=== PATIENT | female | born 1955 | race Caucasian/White ===

== ENCOUNTER → 2016-09-05 | Day surgery (SDC) | payer OTHER ==
[~2016-09-05] VITALS: Ht 162.6 cm; Wt 56.1 kg
[~2016-09-05] MED LIST: ACET500C PO; ACETAMINOPHEN 1000 MG/100 ML VIAL IV ONE; ACETAMINOPHEN 1000 MG/100 ML VIAL IV SCH; ATOR40TA16 PO; BUPIVACAINE LIPOSOME PF 1.3% 20 ML VIAL INFIL ONE; BUPIVACAINE/EPINEPHRINE 0.5% PF 10 ML VIAL ONE; BUPIVACAINE/EPINEPHRINE 0.5% PF 30 ML VIAL ONE; CHOL1TAB42 PO; DEXAMETHASONE SOD PHOS 4 MG/ML VIAL ONE; DIAZ5TAB PO; DIPH2.5T14 PO; FAMOTIDINE 20 MG/2 ML VIAL ONE; INSULIN HUMAN REGULAR 1,000 UNITS/10 ML VIAL SQ PRN; KETAMINE HCL 500 MG/5 ML VIAL ONE; LACTATED RINGER'S 1000 ML INJ 1,000 ML IV ONE; LACTATED RINGER'S 1000 ML IV SCH; LEVO88TA2 PO; LIDOCAINE 1%/EPINEPHrine 1:100,000 SOLN 20 ML VIAL ONE; METOPROLOL TARTRATE 25 MG TAB PO PRN; MIDAZOLAM HCL 2 MG/2 ML VIAL ONE; OMEP20TA PO; PROPOFOL 200 MG/20 ML AMP IV ONE; SODIUM CHLOR 0.9% 250 ML INJ 250 ML ONE; SODIUM CHLORID 0.9% 500 ML IV SCH; TRAM50TA PO; TRAZ50TA12 PO; VANCOMYCIN 1,000 MG/NS 250ML (for <70 kg) IV SCH; VANCOMYCIN HCL 1000 MG VIAL ONE; fentaNYL CITRATE 250 MCG/5 ML AMP ONE; oxyCODONE/ACETAMINOPHEN 5 MG/325 MG TAB ONE
[2016-09-05 10:13] VITALS: BP 149/77; PULSE 72; RESP 16; TEMP 98.1; O2SAT 98
--- NOTE | 2016-09-07 08:47 | MP ---
cc: BEREKET HARDING DATE OF SURGERY: September 05, 2016 PREOPERATIVE DIAGNOSIS Left inguinal hernia. POSTOPERATIVE DIAGNOSIS Left inguinal hernia. PROCEDURE Repair of left inguinal hernia with ProGrip mesh. SURGEON Dr. Harding [employer]PER[employer] Guru Clemente, MS III ANESTHESIA Local/MAC. OPERATIVE FINDINGS The patient was found to have a direct inguinal hernia which was large enough to encompass most of the inguinal floor. There was no evidence of incarcerated viscera. OPERATIVE PROCEDURE The patient was brought to the operating room and after satisfactory sedation by Anesthesia the left groin was prepped and draped in usual sterile fashion. Exparel was used to infiltrate the skin for local anesthesia. A transverse left inguinal incision was made, carried out sharply through the subcutaneous tissue with cautery being used for hemostasis. Incision was deepened to the external oblique fascia which was opened in the direction of its fibers down to and through the external ring. The underside of the fascia was cleaned and the round ligament dissected free bluntly and then divided using the cautery. Hemostasis was strictly assured. The hernia sac was identified and circumferentially cleared from the surrounding tissue and then reduced within the properitoneal space without problem. The internal oblique fascia was brought into close approximation with the shelving edge of the inguinal ligament using interrupted 0 Vicryl sutures. A piece of ProGrip mesh was then secured over to this repair of the entire floor and pressed into the posterior tissue using its Vicryl hooks. After the mesh were secured it was further secured with a single zero Prolene suture in the pubis. Hemostasis was checked for and found to be satisfactory. The external oblique fascia was closed with a running 3-0 Vicryl suture. Subcutaneous tissue was closed with interrupted 3-0 Vicryl sutures and the skin closed with interrupted 4-0 PDS subcuticular stitches. Steri-Strips were applied and the patient was then taken from the operating room in satisfactory condition, having tolerated the procedure without problem. Estimated blood loss was less than 5 mL. The instrument count, sponge count and needle counts were reported as being correct x2 at the end of the procedure. MD RAFFI Quach/ABBY /4:16 PM /8:34 AM
== END | disposition home or self-care (01) ==
LOC: HSDC 09:35
PROVIDERS: ATTEND Surgery
DX: K40.90 Unilateral inguinal hernia, without obstruction or gangrene, not specified as recurrent (principal)
CPT/HCPCS: 00830; 49505; C1781; C9290; J0131; J1100; J2250; J3010; J3370; J7050; J7120